=== PATIENT | female | born 1960 | race Two or more races ===

== ENCOUNTER 2017-06-12 15:35 | Emergency (ER) | payer MEDICAID ==
[~2017-06-12] VITALS: Ht 160 cm; Wt 87.5 kg
[2017-06-12 16:00] VITALS: BP 149/90
[2017-06-12] MEDS ORDERED: methylPREDNISolone SOD SUCC 125 MG/2 ML VL IM ONE (19:30)
== END 2017-06-12 20:48 | disposition home or self-care (01) ==
LOC: ER 15:41
DX: G51.0 Bell's palsy (principal); M19.90 Unspecified osteoarthritis, unspecified site; I10 Essential (primary) hypertension; E66.01 Morbid (severe) obesity due to excess calories; Z68.34 Body mass index [BMI] 34.0-34.9, adult
CPT/HCPCS: 70450; 93005; 96372; 99284; J2930

== ENCOUNTER → 2021-06-30 | Outpatient (CLI) | payer MEDICAID, OTHER | END | disposition home or self-care (01) | LOC: LAB 11:30 | PROVIDERS: ATTEND Nurse Practitioner Family | DX: N39.0 Urinary tract infection, site not specified (principal); R30.0 Dysuria | CPT/HCPCS: 87086; 87088; 87186 ==

== ENCOUNTER 2022-03-30 09:58 | Emergency (ER) | payer OTHER ==
[~2022-03-30] VITALS: Ht 157.5 cm; Wt 88.6 kg
[2022-03-30] MEDS ORDERED: ETOMIDATE (2MG/ML) 20ML VIAL IV ONE (11:00)
[2022-03-30] MEDS ORDERED: ONDANSETRON HCL 4 MG/2 ML VIAL IV ONE (12:30)
[2022-03-30] MEDS ORDERED: HYDROmorphone HCL 2 MG/ML VL/or syr IV ONE (12:30)
[2022-03-30 15:09] VITALS: BP 164/71
[2022-03-30] MEDS ORDERED: HYDR-4902 PO (15:54)
== END 2022-03-30 16:20 | disposition home or self-care (01) ==
LOC: ER 09:58
DX: S53.105A Unspecified dislocation of left ulnohumeral joint, initial encounter (principal); I10 Essential (primary) hypertension; E11.9 Type 2 diabetes mellitus without complications; Z90.49 Acquired absence of other specified parts of digestive tract; Z90.710 Acquired absence of both cervix and uterus; Z79.899 Other long term (current) drug therapy; W01.0XXA Fall on same level from slipping, tripping and stumbling without subsequent striking against object, initial encounter; Y93.89 Activity, other specified; Y92.89 Other specified places as the place of occurrence of the external cause; Y99.8 Other external cause status
CPT/HCPCS: 24600; 73070; 73080; 96374; 96375; 99285; J1170; J2405

== ENCOUNTER 2024-04-09 13:55 | Emergency (ER) | payer OTHER ==
[~2024-04-09] VITALS: Ht 160 cm; Wt 90.2 kg
[~2024-04-09 13:55] MED LIST: HYDR-4902 PO
[2024-04-09 14:48] VITALS: PULSE 71; RESP 17; O2SAT 98
[2024-04-09] MEDS: cloNIDine HCL 0.1 MG TAB PO ONE (14:48)
[2024-04-09] MEDS ORDERED: AMOX500C2 PO (16:34)
[2024-04-09] MEDS ORDERED: PRED20TA2 PO (16:34)
[2024-04-09 16:55] VITALS: BP 147/82; PULSE 81; RESP 20; TEMP 98.2; O2SAT 98
== END 2024-04-09 16:57 | disposition home or self-care (01) ==
LOC: ER 14:07
DX: M51.06 Intervertebral disc disorders with myelopathy, lumbar region (principal); I10 Essential (primary) hypertension; J40 Bronchitis, not specified as acute or chronic; G89.29 Other chronic pain; E11.9 Type 2 diabetes mellitus without complications; K59.00 Constipation, unspecified; Z90.49 Acquired absence of other specified parts of digestive tract; Z90.710 Acquired absence of both cervix and uterus
CPT/HCPCS: 71045

== ENCOUNTER 2024-06-15 17:25 | Emergency (ER) | payer MEDICAID, OTHER ==
[~2024-06-15] VITALS: Ht 157.5 cm; Wt 89.0 kg
[~2024-06-15 17:25] MED LIST changes: +AMOX500C2 PO; +PRED20TA2 PO
--- NOTE | 2024-06-15 18:39 | ED.PDOC ---
History of Present Illness HPI Comments 64-year-old female who came to ER for flank pains. Patient does have history of hypertension, diabetes, and recurrent UTIs. Past 2 months she has been having left upper quadrant/left flank pains, burning, constant, daily, nonradiating. Denies having any fever, nausea, vomiting or urinary symptoms. Denies any trauma. Chief Complaint: Flank Pain Time Seen by MD: 18:44 Primary Care Provider: INÉS Reviewed Notes: Nurses Notes Allergies: Coded Allergies: NO KNOWN ALLERGIES (Unverified , 03/30/22) Home Meds Active Scripts Sulfamethoxazole W/Trimethopri (Bactrim Ds Tablet) 1 Tab Tb, 1 TAB PO BID for 7 Days, #14 TAB Prov:MAHAD GUILLEN MD 06/15/24 Amoxicillin Trihydrate (Amoxicillin) 500 Mg Cap, 1 CAP PO TID for 5 Days, #15 CAP Prov:SURENDRA TAN MD 04/09/24 Prednisone (Prednisone) 20 Mg Tab, 20 MG PO DAILY for 5 Days, #5 MG Prov:SURENDRA TAN MD 04/09/24 Hydrocodone-Acetaminophen (Hydrocodone Bitartrate/AC 5-325 mg) 1 Tab Tab, 1 TAB PO Q6HP PRN for 6 Days, #24 TAB Prov:HAN JUSTICE MD 03/30/22 Information Source: Patient Mode of Arrival: Ambulatory Severity: Moderate Timing: Months Duration: Since onset Past Medical History PAST MEDICAL HISTORY: Arthritis, DM, HTN, UTI'S Surgical History: Appendectomy, , Hysterectomy Surgical History (Other): Back surgery 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 Pertinent MOBILE BATTERY TECHNICIAN History Family History Family History: Family hx of DM, Family hx of Cancer, Family hx of heart silke Social History Smoker: Non-Smoker Alcohol: Denies ETOH Use Drugs: Denies Drug Use Lives In: Home Constitutional: denies: chills, diaphoresis, fatigue, fever, malaise, sweats, weakness, others EENTM: denies: blurred vision, double vision, ear bleeding, ear discharge, ear drainage, ear pain, ear ringing, eye pain, eye redness, hearing loss, mouth pain, mouth swelling, nasal discharge, nose bleeding, nose congestion, nose pain, photophobia, tearing, throat pain, throat swelling, voice changes, others Respiratory: denies: cough, hemoptysis, orthopnea, SOB at rest, shortness of breath, SOB with excertion, stridor, wheezing, others Cardiovascular: denies: chest pain, dizzy spells, diaphoresis, Dyspnea on exertion, edema, irregular heart beat, left arm pain, lightheadedness, pa lpitations, PND, syncope, others Gastrointestinal: reports: abdominal pain (LUQ); denies: abdomen distended, blood streaked bowels, constipated, diarrhea, dysphagia, difficulty swallowing, hematemesis, melena, nausea, poor appetite, poor fluid intake, rectal bleeding, rectal pain, vomiting, others Genitourinary: reports: flank pain; denies: abnormal vagina bleeding, burning, dyspareunia, dysuria, frequency, hematuria, incontinence, pain, , vagina discharge, urgency, others Neurological: denies: dizziness, fainting, headache, left sided numbness, left sided weakness, numbness, paresthesia, pre-existing deficit, right sided numbness, right sided weakness, seizure, speech problems, tingling, tremors, weakness, others Musculoskeletal: denies: back pain, gout, joint pain, joint swelling, muscle pain, muscle stiffness, neck pain, others Integumetry: denies: bruises, change in color, change in hair/nails, dryness, laceration, lesions, lumps, rash, wounds, others Allergic/Immunocompromised: denies: Difficulty Healing, Frequent Infections, Hives, Itching, others Hematologic/Lymphatic: denies: anemia, blood clots, easy bleeding, easy bruising, swollen glands, others Endocrine: denies: excessive hunger, excessive sweating, excessive thirst, excessive urination, flushing, intolerance to cold, intolerance to heat, unexplained weight gain, unexplained weight loss, others Psychiatric: denies: anxiety, bipolar disorder, depression, hopeless, panic disorder, schizophrenia, sleepless, suicidal, others Physical Exam General Appearance: No Apparent Distress, Normal HEENT: Normal ENT Inspection, Pharynx Normal, TMs Normal Neck: Full Range of Motion, Non-Tender, Normal, Normal Inspection Respiratory: Chest Non-Tender, Lungs Clear, No Accessory Muscle Use, No Respiratory Distress, Normal Breath Sounds Cardiovascular: No Edema, No JVD, No Murmur, No Gallop, Normal Peripheral Pulses, Regular Rate/Rhythm Breast Exam: Deferred Gastrointestinal: No Organomegaly, Non Tender, No Pulsatile Mass, Normal Bowel Sounds, Soft Genitalia: Deferred Pelvic: Deferred Rectal: Deferred Extremities: No calf tenderness, Normal capillary refill, Normal inspection, Normal range of motion, Non-tender, No pedal edema Musculoskeletal : Apperance: Normal Neurologic: Alert, 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 Was a procedure done?: No Differential Dx Considerations may include: Urinary tract infection, kidney stones, musculoskeletal pain X-Ray, Labs, Meds, VS Vital Signs Date Time Temp Pulse Resp B/P (MAP) Pulse Ox O2 Delivery O2 Flow Rate FiO2 06/15/24 20:48 98.9 71 18 149/72 (97) 98 98.9 06/15/24 20:48 71 18 98 Room Air 06/15/24 18:10 97.8 65 20 149/60 (89) 95 Lab Test 06/15/24 22:31 06/15/24 21:52 06/15/24 19:39 06/15/24 19:00 Range/Units POC Glucose 188 H 278 H 70-106 mg/dl White Blood Count 10.3 4.4-10.8 10^3/uL Red Blood Count 4.96 4.0-5.20 10^6/uL Hemoglobin 13.9 12.2-16.2 g/dL Hematocrit 42.2 36.0-46.0 % Mean Corpuscular Volume 85.0 80.0-100.0 fL Mean Corpuscular Hemoglobin 28.1 28.0-32.0 pg Mean Corpuscular Hemoglobin Concent 33.0 32.0-36.0 g/dL Red Cell Distribution Width 13.0 11.8-14.3 % Platelet Count 315 140-450 10^3/uL Mean Platelet Volume 9.3 6.9-10.8 fL Neutrophils (%) (Auto) 53.2 37.0-80.0 % Lymphocytes (%) (Auto) 35.6 10.0-50.0 % Monocytes (%) (Auto) 8.6 0.0-12.0 % Eosinophils (%) (Auto) 2.1 0.0-7.0 % Basophils (%) (Auto) 0.5 0.0-2.0 % Neutrophils # (Auto) 5.5 1.6-8.6 10 ^3/uL Lymphocytes # (Auto) 3.7 0.4-5.4 10 ^3/uL Monocytes # (Auto) 0.9 0-1.3 10 ^3/uL Eosinophils # (Auto) 0.2 0-0.8 10 ^3/uL Basophils # (Auto) 0.1 0-0.2 10 ^3/uL Nucleated Red Blood Cells 0.2 % Sodium Level 138 136-145 mmol/L Potassium Level 3.9 3.5-5.1 mmol/L Chloride Level 103 98-107 mmol/L Carbon Dioxide Level 28 20-31 mmol/L Anion Gap 7 5-15 Blood Urea Nitrogen 15 9-23 mg/dL Creatinine 0.79 0.550-1.02 mg/dL Glomerular Filtration Rate Calc 84 >90 mL/min BUN/Creatinine Ratio 19.0 10.0-20.0 Serum Glucose 356 H 74-106 mg/dL Calcium Level 9.8 8.7-10.4 mg/dL Total Bilirubin 0.4 0.2-1.0 mg/dL Aspartate Amino Transferase (AST) 14 13-40 U/L Alanine Aminotransferase (ALT) 16 7-40 U/L Alkaline Phosphatase 155 H 46-116 U/L Total Protein 6.9 5.7-8.2 g/dL Albumin 4.2 3.2-4.8 g/dL Lipase 32 12-53 U/L Urine Color Light-yellow Yellow Urine Clarity Clear Clear Urine pH 5.5 5.0-9.0 Urine Specific Tuckerman 1.040 H 1.001-1.035 Urine Protein 1+ H Negative Urine Ketones Negative Negative Urine Blood Negative Negative /uL Urine Nitrite Negative Negative Urine Bilirubin Negative Negative Urine Urobilinogen Normal Negative mg/dL Urine Leukocyte Esterase 2+ Negative /uL Urine RBC 7 0 - 4 /hpf Urine WBC 47 0 - 5 /hpf Urine Squamous Epithelial Cells Few <5 /hpf Urine Bacteria Few H None Seen /hpf Urine Mucus Few None Seen Urine Glucose 4+ H Normal mg/dL Current Medications Medications (Trade) Dose Ordered Sig/Kartik Route Start Time Stop Time Status Last Admin Sodium Chloride 1,000 ml @ 1,000 mls/hr Q1H ONCE IVB 06/15/24 18:45 06/15/24 19:44 DC 06/15/24 20:50 Insulin Human Regular (InsuLIN R) 6 units ONCE ONCE IV 06/15/24 21:00 06/15/24 21:01 DC 06/15/24 21:49 Ceftriaxone Sodium 50 ml @ 100 mls/hr ONCE ONCE IV 06/15/24 21:00 06/15/24 21:29 DC 06/15/24 21:48 Time of 1ST Reevaluation: 18:37 Reevaluation 1ST: Unchanged Time of 2ND Reevaluation: 20:00 Reevaluation 2ND: Improved Patient Education/Counseling: Diagnosis, Treatment Family Education/Counseling: No Family Present Departure 1 Departure Time of Disposition: 20:00 Impression: Primary Impression: Type 2 diabetes mellitus with hyperglycemia Additional Impression: UTI (urinary tract infection) Disposition: 01 HOME / SELF CARE / HOMELESS Condition: Stable e-Prescriptions Sulfamethoxazole W/Trimethopri (Bactrim Ds Tablet) 1 Tab Tb 1 TAB PO BID for 7 Days, #14 TAB Prov: MAHAD GUILLEN MD 06/15/24 Discharged With: Self Critical Care Note Critical Care Time?: No Stability Stability form required: No Heart Score Heart Score: Heart Score Response (Comments) Value History N/A 0 EKG N/A 0 Age N/A 0 Risk Factors N/A 0 Troponin N/A 0 Total 0 I personally scribed for MAHAD GUILLEN MD (KIM) on 06/15/24 at 18:39. Electronically submitted by Willy Lassiter ([email or web address]). I personally scribed for MAHAD GUILLEN MD (KIM) on 06/15/24 at 18:44. Electronically submitted by Willy Lassiter ([email or web address]). I personally scribed for MAHAD GUILLEN MD (KIM) on 06/15/24 at 18:50. Electronically submitted by Willy Lassiter ([email or web address]). MAHAD GUILLEN MD Jun 15, 2024 18:39
--- NOTE | 2024-06-15 19:37 | DVH ---
Exam: CT CT AB PEL WO CON-NO ORAL OR IV History: Left flank pain Comparison Study: None available at time of dictation. TECHNIQUE: Multidetector CT of the abdomen was performed from lung bases to pubic symphysis. Imaging was performed without IV contrast. Axial, coronal and sagittal multiplanar reformats were obtained fr om the axial data set by the technologist. Radiation Dose Information: CT Dose: CTDI volume is 20.24 mGy. Dose-length product is 1043.54 mGy*cm FINDINGS: Evaluation of solid organs is limited due to lack of intravenous contrast use. Findings: Lung Bases: No acute or significant lung base finding. Normal heart size. No pleural or pericardial effusion. Liver: The liver is normal in size. No focal lesions. Gallbladder and Biliary Tree: Unremarkable Spleen: Unremarkable Pancreas: The pancreas is grossly normal in appearance. Adrenal Glands: Unremarkable Kidneys: Kidneys are grossly normal without calculi or hydronephrosis. Bladder: Grossly unremarkable for degree of distention. Bowel: The stomach is grossly normal in appearance. Small bowel and colon are normal in caliber and d istribution. The appendix is not visualized; however, no secondary findings of acute appendicitis id entified. Ascites: Absent Lymphadenopathy: No mesenteric, retroperitoneal or periportal lymphadenopathy. Abdominal Wall and Mesentery: Unremarkable. Vasculature: The visualized abdominal aorta is normal in size and caliber. Evaluation of abdominal a nd pelvic vessels is limited due to lack of intravenous contrast. Pelvic Organs: Unremarkable Musculoskeletal: No aggressive focal bony lesions, acute fractures or dislocation. Soft tissues: Unremarkable IMPRESSION: 1. No calcified gallstones 2. No nephrolithiasis or hydronephrosis. No calcifications in the left kidney. 3. No findings of bowel obstruction. Stool throughout the colon. Radiation optimization: All CT scans at this facility use at least one of these dose optimization nova hniques: automated exposure control mA and/or kV adjustment per patient size (includes targeted exam s where dose is matched to clinical indication) or iterative reconstruction.
[2024-06-15 20:04] LABS: Basophils # (auto) 0.1 10 ^3/uL (0-0.2); Basophils % (auto) 0.5 % (0.0-2.0); Eosinophils # (auto) 0.2 10 ^3/uL (0-0.8); Eosinophils % (auto) 2.1 % (0.0-7.0); Hematocrit 42.2 % (36.0-46.0); Hemoglobin 13.9 g/dL (12.2-16.2); Lymphocytes # (auto) 3.7 10 ^3/uL (0.4-5.4); Lymphocytes % (auto) 35.6 % (10.0-50.0); Mean Corpuscular Hemoglobin 28.1 pg (28.0-32.0); Monocytes # (auto) 0.9 10 ^3/uL (0-1.3); Monocytes % (auto) 8.6 % (0.0-12.0); Neutrophils # (auto) 5.5 10 ^3/uL (1.6-8.6); Neutrophils % (auto) 53.2 % (37.0-80.0); Nucleated Red Blood Cells % 0.2 %; Platelet Count (auto) 315 10^3/uL (140-450); Red Blood Cells 4.96 10^6/uL (4.0-5.20); White Blood Cell 10.3 10^3/uL (4.4-10.8)
[2024-06-15 20:23] LABS: Alanine Aminotransferase 16 U/L (7-40); Albumin 4.2 g/dL (3.2-4.8); Anion Gap 7 (5-15); Aspartate Aminotransferase 14 U/L (13-40); Bilirubin, Total 0.4 mg/dL (0.2-1.0); Blood Urea Nitrogen 15 mg/dL (9-23); Calcium 9.8 mg/dL (8.7-10.4); Carbon Dioxide 28 mmol/L (20-31); Chloride 103 mmol/L (98-107); Lipase 32 U/L (12-53); Potassium 3.9 mmol/L (3.5-5.1); Sodium 138 mmol/L (136-145); Total Protein 6.9 g/dL (5.7-8.2)
[2024-06-15 20:24] LABS: Alkaline Phosphatase 155 U/L (46-116); Glucose 356 mg/dL (74-106)
[2024-06-15 20:48] VITALS: BP 149/72; PULSE 71; RESP 18; TEMP 98.9; O2SAT 98
[2024-06-15] MEDS: SODIUM CHLORIDE 0.9% 1,000 ML IVB ONE (20:50)
[2024-06-15] MEDS ORDERED: BACDST PO (20:57)
[2024-06-15 21:32] LABS: Urine Bacteria FEW /hpf (None Seen); Urine Blood Negative /uL (Negative); Urine Clarity Clear (Clear); Urine Color Light-Yellow (Yellow); Urine Mucus FEW (None Seen); Urine Protein, UAD 1+ (Negative); Urine Squamous Epithelial Cell FEW /hpf (<5); Urine Urobilinogen Normal (Negative); Urine WBC 47 /hpf (0 - 5); Urine pH 5.5 (5.0-9.0)
[2024-06-15] MEDS: cefTRIAXone 1GM/50ML D5W 50 ML IV ONE (21:48)
[2024-06-15] MEDS: InsuLIN REG 1unit/0.01ml Soln (100units/ml) IV ONE (21:49)
== END 2024-06-15 22:37 | disposition home or self-care (01) ==
LOC: ER 17:27
DX: E11.65 Type 2 diabetes mellitus with hyperglycemia (principal); N39.0 Urinary tract infection, site not specified; M19.90 Unspecified osteoarthritis, unspecified site; I10 Essential (primary) hypertension; Z90.710 Acquired absence of both cervix and uterus; Z90.49 Acquired absence of other specified parts of digestive tract
CPT/HCPCS: 36415; 74176; 80053; 81001; 82962; 83690; 85025; 96361; 96365; 96375; 99285; J0696; J1815